=== PATIENT | male | born 1945 | race Two or more races ===

== ENCOUNTER 2024-10-27 08:40 | Emergency (ER) | payer BC ==
[~2024-10-27] VITALS: Ht 165.1 cm; Wt 77.1 kg
[2024-10-27 09:36] LABS: HEMATOCRIT 44.7 % (39.0-48.0); HEMOGLOBIN 14.8 g/dL (13-16.00); MEAN CELL VOLUME 90.5 fL (80.0-100.00); MEAN CORPUSCULAR HEMOGLOBIN 29.9 pg (27.00-32.0); PLATELET COUNT 164 K/uL (150-450); RED BLOOD COUNT 4.94 M/uL (4.00-6.00); RED CELL DISTRIBUTION WIDTH 16.1 % (11.5-14.5)
[2024-10-27] MEDS ORDERED: PAXLOVID 150-11 EAC1 PO (10:15)
[2024-10-27] MEDS ORDERED: ACETAMINOPHEN500 M1 PO (10:15)
[2024-10-27] MEDS ORDERED: GILTUSS COUGH-118 M1 PO (10:15)
== END 2024-10-27 12:51 | disposition home or self-care (01) ==
LOC: ER 08:43
PROVIDERS: Preventive Medicine Public Health & General Preventive Medicine
DX: U07.1 COVID-19 (principal)